=== PATIENT | female | born 1940 | race Caucasian/White ===

== ENCOUNTER 2016-10-18 09:28 | Outpatient (CLI) | payer MEDICARE, OTHER | END 2016-10-18 23:59 | disposition home or self-care (01) | DX: M85.80 Other specified disorders of bone density and structure, unspecified site (principal); I73.00 Raynaud's syndrome without gangrene; I10 Essential (primary) hypertension; E78.5 Hyperlipidemia, unspecified ==

== ENCOUNTER 2017-01-14 09:52 | Outpatient (CLI) | payer MEDICARE, OTHER | END 2017-01-14 09:53 | disposition home or self-care (01) | DX: G47.33 Obstructive sleep apnea (adult) (pediatric) (principal) | CPT/HCPCS: 99214; G0463 ==

== ENCOUNTER 2017-02-01 21:35 | Outpatient (CLI) | payer MEDICARE, OTHER | END 2017-02-01 21:36 | disposition home or self-care (01) | LOC: SC 21:35 | PROVIDERS: ATTEND Internal Medicine Pulmonary Disease | DX: G47.33 Obstructive sleep apnea (adult) (pediatric) (principal); Z68.41 Body mass index [BMI] 40.0-44.9, adult | CPT/HCPCS: 95811 ==

== ENCOUNTER 2017-03-04 09:24 | Outpatient (CLI) | payer MEDICARE, OTHER | END 2017-03-04 09:25 | disposition home or self-care (01) | LOC: SC 09:24 | PROVIDERS: ATTEND Nurse Practitioner Family | DX: G47.33 Obstructive sleep apnea (adult) (pediatric) (principal) | CPT/HCPCS: 99214; G0463; 99212 ==

== ENCOUNTER 2017-06-03 10:28 | Outpatient (CLI) | payer MEDICARE, OTHER | END 2017-06-03 10:29 | disposition home or self-care (01) | LOC: SC 10:28 | PROVIDERS: ATTEND Nurse Practitioner Family | DX: G47.33 Obstructive sleep apnea (adult) (pediatric) (principal) | CPT/HCPCS: 99213; G0463; 99212 ==

== ENCOUNTER 2017-07-29 10:16 | Outpatient (CLI) | payer MEDICARE, OTHER | END 2017-07-29 10:17 | disposition home or self-care (01) | LOC: SC 10:16 | PROVIDERS: ATTEND Nurse Practitioner Family | DX: G47.33 Obstructive sleep apnea (adult) (pediatric) (principal) | CPT/HCPCS: 99214; G0463; 99212 ==

== ENCOUNTER 2020-07-27 20:56 | Outpatient (CLI) | payer MEDICARE, OTHER | END 2020-07-27 20:57 | disposition short-term general hospital (02) | LOC: EMS 20:56 | PROVIDERS: ATTEND Surgery | DX: R68.84 Jaw pain (principal); R06.09 Other forms of dyspnea | CPT/HCPCS: A0425; A0427 ==

== ENCOUNTER 2021-10-17 07:27 | Outpatient (CLI) | payer MEDICARE, OTHER | END 2021-10-17 07:28 | disposition EMS.NT | LOC: EMS 07:27 | DX: Z03.89 Encounter for observation for other suspected diseases and conditions ruled out (principal) ==

== ENCOUNTER 2022-02-03 07:59 | Outpatient (CLI) | payer MEDICARE, OTHER | END 2022-02-03 08:00 | disposition short-term general hospital (02) | LOC: EMS 07:59 | DX: R42 Dizziness and giddiness (principal) | CPT/HCPCS: A0425; A0429 ==

== ENCOUNTER 2022-04-07 16:16 | Outpatient (CLI) | payer MEDICARE, OTHER | END 2022-04-07 16:17 | disposition short-term general hospital (02) | LOC: EMS 16:16 | DX: R10.13 Epigastric pain (principal) | CPT/HCPCS: A0425; A0429 ==